=== PATIENT | female | born 1990 | race Caucasian/White ===

== ENCOUNTER → 2016-08-13 | Outpatient (CLI) | payer BC ==
[~2016-08-13] MED LIST: BIRTH CONTROL PILLS; CELEXA 20MG20 MG/TAB PO; EFFEXOR-XR150 MG PO; LORTAB 5/500 501 TAB PO; MICROGESTIN 1/21 TAB PO; MOTRIN 800800 MG/TAB PO; NKA; NO HOME MEDICATIONS; NORCO 325 MG-51 TAB PO; NORCO 325 MG-7.1 TAB PO; PROMETHAZINE12.5 M5 PO; PROTONIX 40MG T40 MG PO; ZOFRAN 4MG T4 MG/TAB PO
[2016-08-13 15:29] LABS: HEMATOCRIT 37.1 % (37.0-47.0); HEMOGLOBIN 12.4 g/dl (12.5-16.0); MEAN CELL VOLUME 89 fl (80.0-100.0); MEAN CORPUSCULAR HEMOGLOBIN 30 pg (27.0-31.0); MEAN CORPUSCULAR HGB CONC 33 g/dl (33.0-37.0); MEAN PLATELET VOLUME 9.5 fl (7.4-10.4); PLATELET COUNT 315 K/mm3 (130-400); RED BLOOD COUNT 4.16 M/mm3 (4.10-5.30); REDCELL DISTRIBUTION WIDTH-CV 12.5 % (11.5-14.5); WHITE BLOOD COUNT 5.7 K/mm3 (4.8-10.8)
[2016-08-13 15:48] LABS: ADJUSTED CALCIUM 9.1 mg/dL (8.4-10.2); ALBUMIN 4.5 gm/dL (3.5-5.0); BILIRUBIN,TOTAL 0.7 mg/dL (0.0-1.0); CALCIUM 9.5 mg/dL (8.4-10.2); CREATININE, serum 0.81 mg/dL (0.52-1.25); POTASSIUM 3.8 mmol/L (3.4-5.0); TOTAL PROTEIN 8.1 gm/dL (6.4-8.2)
== END ==
LOC: COL.LAB 15:02
PROVIDERS: Nurse Practitioner Primary Care
DX: R53.83 Other fatigue (principal); R19.7 Diarrhea, unspecified

== ENCOUNTER → 2016-08-15 | Outpatient (CLI) | payer BC | LOC: COL.LAB 11:06 | DX: R53.83 Other fatigue (principal); R19.7 Diarrhea, unspecified ==

== ENCOUNTER → 2020-02-06 | Outpatient (CLI) | payer BC | LOC: ZCOL.LAB 13:45 | DX: R05 Cough (principal); R06.02 Shortness of breath; Z20.828 Contact with and (suspected) exposure to other viral communicable diseases ==